=== PATIENT | male | born 1970 | race African-American/Black ===

== ENCOUNTER 2022-01-12 06:43 | Emergency (ER) | payer SELFPAY ==
[~2022-01-12] VITALS: Ht 195.6 cm; Wt 107.4 kg
[2022-01-12 06:50] VITALS: BP 129/91
[2022-01-12] MEDS ORDERED: DIPHENHYDRAMINE 25MG CAPSULE PO ONE (07:15)
[2022-01-12] MEDS ORDERED: AMLO5TAB88 MT (08:29)
== END 2022-01-12 08:50 | disposition home or self-care (01) ==
LOC: ER 06:43
DX: R22.0 Localized swelling, mass and lump, head (principal); I10 Essential (primary) hypertension
CPT/HCPCS: 99283; Q0163

== ENCOUNTER 2022-06-17 04:56 | Emergency (ER) | payer MEDICAID ==
[~2022-06-17] VITALS: Ht 195.6 cm; Wt 100.0 kg
[~2022-06-17 04:56] MED LIST: AMLO5TAB88 MT
[2022-06-17 05:14] VITALS: BP 144/91
[2022-06-17 05:43] LABS: PROTHROMBIN TIME 10.8 sec (9.6-11.0)
[2022-06-17 05:45] LABS: CHLORIDE 104 mEq/L (98-107)
[2022-06-17 06:15] LABS: BASOPHILS % 0.8 % (0.0-2.0); EOSINOPHILS % 2.1 % (0.0-5.0); HEMATOCRIT. 43.9 % (42.0-52.0); HEMOGLOBIN. 15.3 g/dL (14.0-18.0); LYMPHOCYTES % 34.2 % (20.0-50.0); MEAN CORPUSCULAR HEMOGLOBIN 26.3 pg (28.0-32.0); MEAN CORPUSCULAR VOLUME 75.6 fL (80.0-94.0); MEAN PLATELET VOLUME 8.1 fl (7.4-10.4); MONOCYTES % 8.5 % (2.0-8.0); NEUTROPHILS % 54.4 % (40.0-76.0); PLATELET 256 x1000/uL (130-400); RED BLOOD CELL COUNT 5.82 mill/uL (4.7-6.1); RED CELL DISTRIBUTION WIDTH 15.1 % (11.6-14.6)
[2022-06-17] MEDS ORDERED: KETOROLAC 60MG/2ML VIAL IM STA (06:41)
== END 2022-06-17 08:13 | disposition home or self-care (01) ==
LOC: ER 04:56
DX: R09.1 Pleurisy (principal); I10 Essential (primary) hypertension
CPT/HCPCS: 36415; 71045; 80053; 84484; 85025; 85379; 85610; 93005; 96372; 99285; J1885; Z7610

== ENCOUNTER 2022-06-24 08:12 | Emergency (ER) | payer MEDICAID ==
[~2022-06-24] VITALS: Ht 195.6 cm; Wt 100.0 kg
[2022-06-24 08:25] VITALS: BP 144/81
[2022-06-24] MEDS ORDERED: MAGN296S70 MT (10:41)
[2022-06-24] MEDS ORDERED: NA P133E4 RC (10:41)
== END 2022-06-24 11:03 | disposition home or self-care (01) ==
LOC: ER 09:00
DX: K59.00 Constipation, unspecified (principal); I10 Essential (primary) hypertension; Z88.5 Allergy status to narcotic agent; Z88.8 Allergy status to other drugs, medicaments and biological substances
CPT/HCPCS: 71045; 74018; 99284

== ENCOUNTER 2022-10-12 03:46 | Emergency (ER) | payer MEDICAID ==
[~2022-10-12] VITALS: Ht 198.1 cm; Wt 106.0 kg
[~2022-10-12 03:46] MED LIST changes: +MAGN296S70 MT; +NA P133E4 RC
[2022-10-12 03:55] VITALS: TEMP 98.3; O2SAT 98
[2022-10-12 05:05] LABS: BASOPHILS % 0.8 % (0.0-2.0); DIFFERENTIAL COMMENT 0; EOSINOPHILS % 1.9 % (0.0-5.0); HEMATOCRIT. 42.8 % (42.0-52.0); HEMOGLOBIN. 14.5 g/dL (14.0-18.0); LYMPHOCYTES % 46.2 % (20.0-50.0); MEAN CORPUSCULAR HEMOGLOBIN 25.8 pg (28.0-32.0); MEAN CORPUSCULAR VOLUME 75.8 fL (80.0-94.0); MEAN PLATELET VOLUME 7.7 fl (7.4-10.4); MONOCYTES % 4.8 % (2.0-8.0); NEUTROPHILS % 46.3 % (40.0-76.0); PLATELET 249 x1000/uL (130-400); RED BLOOD CELL COUNT 5.64 mill/uL (4.7-6.1); RED CELL DISTRIBUTION WIDTH 15.5 % (11.6-14.6); WHITE BLOOD COUNT 7.7 x1000/uL (4.5-11.0)
[2022-10-12 05:26] LABS: CHLORIDE 107 mEq/L (98-107); INDEX HEMOLYSI 1 (1-3); INDEX ICTERIC 1 (1-4); INDEX LIPEMIC 1 (1-3); POTASSIUM 3.8 mEq/L (3.5-5.1); SODIUM 137 mEq/L (136-145)
[2022-10-12 05:38] LABS: ALANINE AMINOTRANSFERASE 30 IU/L (13-61); ALBUMIN 3.4 g/dL (3.4-5.0); ASPARTATE AMINOTRANSFERASE 21 IU/L (15-37); BILIRUBIN TOTAL 0.4 mg/dL (0.1-1.0); CALCIUM 8.6 mg/dL (8.5-10.1); CARBON DIOXIDE 27 mEq/L (21-32); CREATININE 1.1 mg/dL (0.6-1.3); GLUCOSE 103 mg/dL (70-105); PROTEIN TOTAL 7.2 g/dL (6.0-8.3); TROPONIN I HIGH SENSITIVITY 5 ng/L (<78); UREA NITROGEN BLOOD 15 mg/dL (7-21)
[2022-10-12 08:47] LABS: CLARITY URINE CLEAR (CLEAR); COLOR URINE YELLOW (YELLOW); GLUCOSE URINE NEGATIVE (NEGATIVE); KETONES URINE NEGATIVE (NEGATIVE); LEUKOCYTE ESTERASE URINE NEGATIVE (NEGATIVE); NITRITE URINE NEGATIVE (NEGATIVE); OCCULT BLOOD URINE TRACE (NEGATIVE); PROTEIN URINE NEGATIVE (NEGATIVE); SPECIFIC GRAVITY URINE 1.024 (1.005-1.030)
[2022-10-12 09:09] LABS: MUCUS URINE 1+ /lpf (NONE/TRACE)
[2022-10-12 09:12] LABS: BACTERIA URINE TRACE; SQUAMOUS EPITHELIAL CELL URINE 1+ /lpf (RARE/1+)
[2022-10-12] MEDS ORDERED: ASPIRIN 81MG TABLET PO ONE (11:00)
[2022-10-12] MEDS ORDERED: ASPIRIN 81MG TABLET PO SCH (13:00)
[2022-10-12 13:17] LABS: NT PRO B-TYPE NATRIURETIC PEP 13 pg/mL (5-125); TROPONIN I HIGH SENSITIVITY 5 ng/L (<78)
[2022-10-12 14:03] VITALS: BP 136/83; PULSE 71; RESP 15
== END 2022-10-12 14:08 | disposition home or self-care (01) ==
LOC: ER 03:46
DX: R07.89 Other chest pain (principal); I10 Essential (primary) hypertension
CPT/HCPCS: 80053; 81003; 83880; 83690; 85025; 84484; 36415; 71045; 93005; 99285; Z7610 ×2

== ENCOUNTER 2023-09-23 01:27 | Emergency (ER) | payer OTHER ==
[~2023-09-23] VITALS: Ht 198.1 cm; Wt 155.0 kg
[2023-09-23 01:35] VITALS: BP 160/95; PULSE 101; RESP 16; TEMP 98.3; O2SAT 98
[2023-09-23 02:21] LABS: BASOPHILS % 0.8 % (0.0-2.0); DIFFERENTIAL COMMENT 0; EOSINOPHILS % 3.4 % (0.0-5.0); HEMATOCRIT. 41.7 % (42.0-52.0); HEMOGLOBIN. 14.2 g/dL (14.0-18.0); LYMPHOCYTES % 28.1 % (20.0-50.0); MEAN CORPUSCULAR HEMOGLOBIN 25.6 pg (28.0-32.0); MEAN CORPUSCULAR HGB CONC 33.9 g/dL (31.0-37.0); MEAN CORPUSCULAR VOLUME 75.5 fL (80.0-94.0); MEAN PLATELET VOLUME 7.8 fl (7.4-10.4); MONOCYTES % 12.5 % (2.0-8.0); NEUTROPHILS % 55.2 % (40.0-76.0); PLATELET 244 x1000/uL (130-400); RED BLOOD CELL COUNT 5.53 mill/uL (4.7-6.1); RED CELL DISTRIBUTION WIDTH 15.7 % (11.6-14.6)
[2023-09-23 02:28] LABS: CHLORIDE 106 mEq/L (98-107); POTASSIUM 4.1 mEq/L (3.5-5.1); SODIUM 139 mEq/L (136-145)
[2023-09-23 02:29] LABS: CALCIUM 9.2 mg/dL (8.7-10.4); CARBON DIOXIDE 27 mEq/L (21-32)
[2023-09-23 02:34] LABS: CREATININE 1.2 mg/dL (0.6-1.3); GLUCOSE 101 mg/dL (70-105); UREA NITROGEN BLOOD 13 mg/dL (9-23)
[2023-09-23 03:38] LABS: TROPONIN I HIGH SENSITIVITY < 4 ng/L (3.0-53)
[2023-09-23] MEDS ORDERED: BENZ100C86 MT (05:02)
[2023-09-23] MEDS ORDERED: DOXY100T2 MT (05:02)
== END 2023-09-23 07:30 | disposition home or self-care (01) ==
LOC: ER 01:27
DX: R05.9 Cough, unspecified (principal); I10 Essential (primary) hypertension; Z88.5 Allergy status to narcotic agent; Z88.8 Allergy status to other drugs, medicaments and biological substances
CPT/HCPCS: 36415; 71045; 80048; 84484; 85025; 93005; 99285

== ENCOUNTER 2024-01-06 10:44 | Emergency (ER) | payer OTHER ==
[~2024-01-06] VITALS: Ht 198.1 cm; Wt 110.0 kg
[~2024-01-06 10:44] MED LIST changes: +BENZ100C86 MT; +DOXY100T2 MT
[2024-01-06 10:46] VITALS: TEMP 98; O2SAT 96
[2024-01-06] MEDS: MECLIZINE 25MG TABLET PO ONE (11:25)
[2024-01-06] MEDS: SODIUM CHLORIDE 0.9% 1,000 ML IV ONE (11:25)
[2024-01-06 11:27] LABS: BASOPHILS % 0.7 % (0.0-2.0); DIFFERENTIAL COMMENT 0; EOSINOPHILS % 1.6 % (0.0-5.0); HEMATOCRIT. 43.9 % (42.0-52.0); HEMOGLOBIN. 15.1 g/dL (14.0-18.0); MEAN CORPUSCULAR HGB CONC 34.3 g/dL (31.0-37.0); MEAN CORPUSCULAR VOLUME 75.7 fL (80.0-94.0); MEAN PLATELET VOLUME 7.4 fl (7.4-10.4); MONOCYTES % 7.5 % (2.0-8.0); NEUTROPHILS % 56.2 % (40.0-76.0); PLATELET 216 x1000/uL (130-400); RED CELL DISTRIBUTION WIDTH 16.1 % (11.6-14.6); WHITE BLOOD COUNT 8.5 x1000/uL (4.5-11.0)
[2024-01-06 11:37] LABS: CHLORIDE 104 mEq/L (98-107); POTASSIUM 3.7 mEq/L (3.5-5.1); SODIUM 138 mEq/L (136-145)
[2024-01-06 11:38] LABS: CARBON DIOXIDE 34 mEq/L (21-32)
[2024-01-06 11:39] LABS: CALCIUM 9.1 mg/dL (8.7-10.4)
[2024-01-06 11:43] LABS: CREATININE 1.1 mg/dL (0.6-1.3); GLUCOSE 103 mg/dL (70-105); UREA NITROGEN BLOOD 11 mg/dL (9-23)
[2024-01-06 11:50] LABS: TROPONIN I HIGH SENSITIVITY < 4 ng/L (3.0-53)
[2024-01-06 13:00] VITALS: BP 171/87; PULSE 82; RESP 22; O2SAT 96
[2024-01-06 13:25] LABS: BG BASE EXCESS -0.5 mmol/L (-2.0-3.0); BG CARBOXYHEMOGLOBIN 0.7 % (0.5-1.5); BG DEOXYHEMOGLOBIN 3.8 % (0.0-5.0); BG FRACTION INSPIRED OXYGEN 21; BG HCO3 ACT 23.1 mmol/L (21.0-28.0); BG OXYGEN SATURATION 96.2 % (94.0-98.0); BG OXYHEMOGLOBIN 95.5 % (94.0-98.0); BG PCO2 34.8 mmHg (35.0-48.0); BG PH 7.439 (7.350-7.450); BG PO2 83.2 mmHg (83.0-108.0); BG SAMPLE SITE RIGHT RADIAL; BG VENT MODE ROOM AIR
== END 2024-01-06 13:22 | disposition home or self-care (01) ==
LOC: ER 10:44
DX: R42 Dizziness and giddiness (principal); I10 Essential (primary) hypertension; Z88.8 Allergy status to other drugs, medicaments and biological substances
CPT/HCPCS: 99285; 96360; 70450; 71045; 80048; 83880; 85025; 84484; 36415; 82805; 82375; 93005; 36600; J8597; J7030